=== PATIENT | male | born 1960 | race Caucasian/White ===

== ENCOUNTER → 2020-01-06 11:57 | Outpatient (BNVA) | payer OTHER, SELFPAY | PROVIDERS: Family Provider Family Medicine; PCP Family Medicine; Visit Provider Family Medicine | DX: J40 Bronchitis, not specified as acute or chronic (principal); R50.9 Fever, unspecified | CPT/HCPCS: 85025; 87400; 87635 ==

== ENCOUNTER → 2021-08-31 14:43 | Outpatient (BNVA) | payer OTHER, SELFPAY | PROVIDERS: Family Provider Family Medicine; PCP Family Medicine; Visit Provider Nurse Practitioner Family | DX: R05.3 Chronic cough (principal); Z77.29 Contact with and (suspected) exposure to other hazardous substances | CPT/HCPCS: 71046 ==

== ENCOUNTER → 2021-11-19 16:40 | Outpatient (BNVA) | payer OTHER, SELFPAY | PROVIDERS: Family Provider Family Medicine; PCP Family Medicine; Visit Provider Nurse Practitioner Family | DX: R10.9 Unspecified abdominal pain (principal); Z87.442 Personal history of urinary calculi | CPT/HCPCS: 81003 ==

== ENCOUNTER 2023-03-10 12:31 | Outpatient (CLI) | payer OTHER, SELFPAY ==
--- NOTE | 2023-03-10 | USCV_ITS ---
Jean-Claude Ricardo Age: 62 Gender: M : 1960 Exam Date: 03/10/2023 12:55 Ordering Phys: Nan Delgadillo Technologist: CHANTEL Exam Location: [facility] [place] Indication: LE Swelling HISTORY: Lower extremity swelling. PROCEDURES: Venous duplex imaging was performed in only the right lower extremity. The following venous structures were evaluated: common femoral vein, profunda vein, proximal portion of the greater saphenous vein, superficial femoral vein, and the popliteal vein. In addition, the posterior tibial and peroneal trunk were evaluated. Serial compression, augmentation maneuvers, and spectral Doppler flow evaluation were performed. FINDINGS: No evidence of DVT seen in any vessel visualized at this time. CONCLUSIONS No evidence of right lower extremity DVT. Chris Ruiz MD (Electronically Signed) Final Date: 10 March 2023 15:15 S
== END 2023-03-10 12:32 | disposition home or self-care (01) ==
PROVIDERS: PCP Nurse Practitioner; Visit Provider Nurse Practitioner
DX: M79.89 Other specified soft tissue disorders (principal)
CPT/HCPCS: 93971

== ENCOUNTER 2024-02-26 13:22 | Outpatient (CLI) | payer MEDICARE, SELFPAY ==
--- NOTE | 2024-02-26 13:32 | XRR_ITS ---
PROCEDURE INFORMATION: Exam: XR Lumbosacral Spine Exam date and time: 02/26/2024 1:51 PM Age: 63 years old Clinical indication: Lumbago with sciatica; Left; Patient HX: Sciatic nerve pain , goes down L leg; Additional info: Lumbago w/sciatica/muscle spasms TECHNIQUE: Imaging protocol: Radiologic exam of the lumbosacral spine. Views: 2 or 3 views. COMPARISON: No relevant prior studies available. FINDINGS: Bones/joints: Vertebral body heights are well preserved. Moderate multilevel anterior osteophytes. Moderate multilevel disc space narrowing, worse at L3-L4, L4-L5, and L5-S1. The spinal canal is patent. Facet joints have moderate degenerative narrowing and sclerosis. No vertebral body translocation on the flexion or extension views. No acutely displaced fractures. No joint dislocation. No aggressive osseous lesions. Soft tissues: No acute soft tissue findings. XR/XR lumbar spine f/e only [id number] IMPRESSION: No acute skeletal pathology.
== END 2024-02-26 13:23 | disposition home or self-care (01) ==
PROVIDERS: PCP Nurse Practitioner; Visit Provider Nurse Practitioner
DX: M54.42 Lumbago with sciatica, left side (principal); M62.830 Muscle spasm of back; M25.78 Osteophyte, vertebrae; M48.061 Spinal stenosis, lumbar region without neurogenic claudication; M48.07 Spinal stenosis, lumbosacral region
CPT/HCPCS: 72120